=== PATIENT | female | born 1980 | race Caucasian/White ===

== ENCOUNTER 2017-11-26 15:40 | Inpatient (IN) | payer OTHER ==
[~2017-11-26] VITALS: Ht 162.6 cm; Wt 79.8 kg
[2017-11-26 16:50] LABS: ABSOLUTE BASOPHIL COUNT 0 /CUMM (0.0-0.2); ABSOLUTE EOSINOPHIL COUNT 0.1 /CUMM (0.0-0.7); ABSOLUTE GRANULOCYTE CT 6.7 /CUMM (1.4-6.5); ABSOLUTE LYMPH COUNT 1.8 /CUMM (1.2-3.4); ABSOLUTE MONOCYTE COUNT 0.8 /CUMM (0.10-0.60); BASOPHIL % 0.4 % (0.0-2.0); GRANULOCYTE % 71.4 % (42.2-75.2); HEMATOCRIT 37.7 % (37-47); MEAN CORPUSCULAR HGB 29.7 PG (27.0-31.0); MEAN CORPUSCULAR HGB CONC 33.4 G/DL (33.0-37.0); MEAN CORPUSCULAR VOLUME 88.8 FL (81.0-99.0); MEAN PLATELET VOLUME 8.1 FL (7.4-10.4); PLATELET COUNT 246 /CUMM (130-400); RBC DISTRIBUTION WIDTH 17.4 % (11.5-14.5); RED BLOOD CELL CT 4.25 /CUMM (4.20-5.40); WHITE BLOOD CELL COUNT 9.4 /CUMM (4.8-10.8)
--- NOTE | 2017-11-26 18:50 | History & Physical Pre-Op ---
General Information and HPI MD Statement: I have seen and personally examined CELSO HENNESSY and documented this H&P. The patient is a 37 year old F who presented with a patient stated chief complaint of 40 weeks and 5 days gestation for induction of labor []. History of Present Illness: 37-year-old 2 para 1001 at 40-5/7 weeks gestation with adequate care followed in my office within normal 1 hour glucose test negative GBS who presents for induction of labor with misoprostol and Pitocin patient and I have discussed at length the risks of I using misoprostol and Pitocin presents for section and shoulder dystocia. Estimated weight the infant on 320 7 lbs. 11 oz. Allergies/Medications Allergies: Coded Allergies: cefaclor (From [facility]) (rash 11/26/17) Past History Medical History Isolation History: Standard Surgical History Pertinent Surgical History: none Past Family/Social History Psychosocial History Smoking Status: Never Smoked Review of Systems Review of Systems: -13 point review of systems as stated in the HPI Exam & Diagnostic Data Physical Exam: Pleasant white female in no apparent distress HEENT anicteric Lungs clear Abdomen soft estimated weight 3700 g Pelvic 1 cm 50% vertex 0 intact soft Assessment/Plan Assessment/Plan: Assessment is 40-5/7 weeks gestation for serial induction plan is for misoprostol Pitocin observe for As Ranked By This Provider Problem List: 1.
[2017-11-27] MEDS ORDERED: PRENATAL TABLE1 EAC2 PO (08:26)
[2017-11-27] MEDS ORDERED: RENAL CAPS SOFTG1 MG PO (08:27)
[2017-11-27] MEDS ORDERED: XANAX XR2 M1 PO (08:27)
--- NOTE | 2017-11-27 09:02 | PN- Obstetrical ---
Subjective Subjective: No complaints Objective Last 24 Hrs of Vital Signs/I&O As per chart Intake & Output 11/27 1600 11/27 0800 11/27 0000 Intake Total Output Total Balance Patient 176 lb Weight Physical Exam: Thin white female in no apparent distress HEENT anicteric Abdomen soft estimated weight 3900 g Extremities negative edema Obstetric Exam Dilation (cm): 2 Effacement (%): 50 Station: 0 Membranes: intact Fluid: unknown Multiple Gestation? No Contractions: Every 10 minutes Assessment/Plan Assessment/Plan Assessment is 40-5/7 weeks gestation for serial induction Plan Pitocin observe for discussion with patient regarding positive urine tox with on dental days pending cannabis and advisement not to breast-feed secondary to cannabis
--- NOTE | 2017-11-27 15:07 | Labor & Delivery Summary ---
Delivery Summary Vaginal Delivery: Vaginal: vertex : : vacuum Station/Position at [place]: +1 VTX [place] Episiotomy/Lacerations: Episiotomy/Lacerations: none Placenta: Placenta: spontanteous, normal, 3 vessel, nuchal cord (x_) (X1) Anesthesia: NO2 Additional Comments: VACUUM WITH SINGLE APPLICATION AT+SECONDARY TO BRADYCARDIA. PLACENTA BY CCCT 30 PERCENT ABRUPTION.NO LACERATION.
[2017-11-27 15:36] VITALS: BP 119/66
[2017-11-28 08:54] LABS: ABSOLUTE BASOPHIL COUNT 0.1 /CUMM (0.0-0.2); ABSOLUTE EOSINOPHIL COUNT 0.1 /CUMM (0.0-0.7); ABSOLUTE GRANULOCYTE CT 9.7 /CUMM (1.4-6.5); ABSOLUTE LYMPH COUNT 1.5 /CUMM (1.2-3.4); ABSOLUTE MONOCYTE COUNT 0.7 /CUMM (0.10-0.60); BASOPHIL % 0.5 % (0.0-2.0); EOSINOPHIL % 0.5 % (0-5); GRANULOCYTE % 80.2 % (42.2-75.2); MEAN CORPUSCULAR HGB 29.6 PG (27.0-31.0); MEAN CORPUSCULAR HGB CONC 33.4 G/DL (33.0-37.0); MEAN CORPUSCULAR VOLUME 88.7 FL (81.0-99.0); MEAN PLATELET VOLUME 7.6 FL (7.4-10.4); PLATELET COUNT 215 /CUMM (130-400); RBC DISTRIBUTION WIDTH 17.9 % (11.5-14.5); RED BLOOD CELL CT 3.84 /CUMM (4.20-5.40); WHITE BLOOD CELL COUNT 12.1 /CUMM (4.8-10.8)
[2017-11-28] MEDS ORDERED: IBUPROFEN800 M1 PO (12:31)
== END 2017-11-29 11:00 | DRG 560 ==
LOC: CBCO 15:40 → GNO 15:43
PROVIDERS: Specialist
PROC: 10D07Z6 Extraction of Products of Conception, Vacuum, Via Natural or Artificial Opening (ICD-10-PCS; principal; 2017-11-27)
PROC: 3E0P7VZ Introduction of Hormone into Female Reproductive, Via Natural or Artificial Opening (ICD-10-PCS; principal; 2017-11-27)
DX: O76 Abnormality in fetal heart rate and rhythm complicating labor and delivery (principal); O99.324 Drug use complicating childbirth; Z3A.40 40 weeks gestation of pregnancy; Z37.0 Single live birth; O69.81X0 Labor and delivery complicated by cord around neck, without compression, not applicable or unspecified
CPT/HCPCS: GNOP; GNOS; 80307; 81001; 88307; J7120